=== PATIENT | female | born 1960 | race Caucasian/White ===

== ENCOUNTER 2016-08-01 18:41 | Emergency (ER) | payer OTHER ==
[~2016-08-01] VITALS: Wt 138.3 kg
[~2016-08-01 18:41] MED LIST: ATENOLOL50 MG PO; CLINDAMYCIN150 MG PO; FLEXERIL5 MG PO; HYDROCODONE BIT1 T11 PO; LISINOPRIL HCTZ1 TA1 PO; LOPRESSOR50 MG PO; NAPROSYN500 MG PO; POTASSIUM GLUC550 M1 PO; PRINIVIL20 MG PO; VICODIN 500 MG-1 TAB PO; VOLTAREN50 M1 PO; ZOLOFT100 MG PO
[2016-08-01] MEDS ORDERED: LORAZEPAM1 MG PO (18:43)
[2016-08-01] MEDS ORDERED: TAMIFLU 75MG CA75 MG PO (20:00)
== END 2016-08-01 20:05 | disposition home or self-care (01) ==
LOC: ED 18:41
DX: J09.X2 Influenza due to identified novel influenza A virus with other respiratory manifestations (principal); Z88.2 Allergy status to sulfonamides; Z91.040 Latex allergy status; Z90.49 Acquired absence of other specified parts of digestive tract

== ENCOUNTER 2016-12-31 17:14 | Emergency (ER) | payer OTHER ==
[~2016-12-31] VITALS: Ht 160 cm; Wt 136.1 kg
[~2016-12-31 17:14] MED LIST changes: +LORAZEPAM1 MG PO; +TAMIFLU 75MG CA75 MG PO
[2016-12-31] MEDS ORDERED: CEPHALEXIN500 M1 PO (17:44)
== END 2016-12-31 17:47 | disposition home or self-care (01) ==
LOC: ED 17:14
DX: L03.113 Cellulitis of right upper limb (principal); Z88.2 Allergy status to sulfonamides; Z91.040 Latex allergy status; Z90.49 Acquired absence of other specified parts of digestive tract

== ENCOUNTER 2017-04-26 15:24 | Inpatient (IN) | payer OTHER ==
[~2017-04-26] VITALS: Ht 160 cm; Wt 140.3 kg
[~2017-04-26 15:24] MED LIST changes: +CEPHALEXIN500 M1 PO
[2017-04-26 15:50] VITALS: BP 169/110
[2017-04-26 16:04] VITALS: BP 148/78
[2017-04-26 16:50] LABS: BASO # 0.1 10*3/uL (0.0-0.1); BASO % 0.7 % (0.0-1.0); EOS # 0.2 10*3/uL (0.0-0.4); EOS % 2.3 % (1.0-4.0); HEMATOCRIT 39.6 % (37.0-47.0); HEMOGLOBIN 13.8 g/dl (12.0-16.0); LYMPH # 2.8 10*3/uL (1.3-4.4); LYMPH % 40.1 % (27.0-41.0); MEAN CELL VOLUME 88.2 fl (81.0-99.0); MEAN CORPUSCULAR HGB 30.7 pg (27.0-31.0); MEAN CORPUSCULAR HGB CONC 34.8 g/dl (33.0-37.0); MEAN PLATELET VOLUME 9.6 fl (9.6-12.3); MONO # 0.5 10*3/uL (0.1-1.0); MONO % 6.8 % (3.0-9.0); NEUT # 3.5 10*3/uL (2.3-7.9); NEUT % 49.8 % (47.0-73.0); PLATELET COUNT AUTOMATED 242 10*3/uL (130-400); RED BLOOD COUNT 4.49 10*6/uL (4.10-5.10); RED CELL DISTRI WIDTH 12.5 % (0-14.5); WHITE BLOOD COUNT 7.1 10*3/uL (4.8-10.8)
[2017-04-26 17:07] LABS: ALBUMIN 3.7 gm/dl (3.1-4.5); ALKALINE PHOSPHATASE 67 U/L (45-117); BUN 16 mg/dl (7-24); CHLORIDE 101 mmol/L (98-107); CREATININE 0.79 mg/dL (0.55-1.02); MAGNESIUM 1.8 mg/dL (1.5-2.1); POTASSIUM 3.4 mmol/L (3.5-5.1); SGOT/AST 30 IU/L (3-35); SGPT/ALT 39 U/L (12-78); SODIUM 137 mmol/L (136-145); TOTAL PROTEIN 7.5 gm/dL (6.4-8.2)
[2017-04-26 17:17] LABS: TROPONIN I < 0.015 ng/ml (<0.045)
[2017-04-26 18:20] VITALS: BP 146/72
[2017-04-26] MEDS ORDERED: [UNRECOGNIZED DRUG - CODE] (18:30)
--- NOTE | 2017-04-26 18:30 | NUR ---
A 56, admitted to , under the services of FRANCISCO Bob DO with a diagnosis of chest pain. Chief complaint is shoulder pain. Patient arrived via stretcher from ER. Monitor applied. Initial assessment completed. Vital signs taken and recorded. FRANCISCO BOB DO notified of admission to the unit. Orders received. See assessment for past medical history, medications and allergies. Patient and/or family oriented to unit. [facility]. Clothing/patient valuable form completed. JEAN CARLOS FIGUEROA
--- NOTE | 2017-04-26 19:40 | NUR ---
PT. AWAKE, ALERT AND ORIENTED X 3. PT. DENIES CP, SOB AT THIS TIME. CALL LIGHT WITHIN REACH, BED IN LOWEST POSITION, WHEELS LOCKED. SEE SHIFT ASSESSMENT.
[2017-04-26 20:06] VITALS: BP 151/94
[2017-04-27] VITALS: BP 110/72
--- NOTE | 2017-04-27 00:14 | NUR ---
PT. REQUESTED PAIN MEDICATION FOR LEFT SHOULDER PAIN 12/12. [facility], WILL ASSESS FOR EFFECTIVENESS.
--- NOTE | 2017-04-27 01:00 | NUR ---
PT. RE-ASSESSED FOR PAIN FOLLOWING NORCO ADM. PT. SLEEPING WITH NO SIGNS OF DISTRESS, RESPIRATIONS EASY, NON-LABORED.
[2017-04-27 02:57] LABS: BASO % 0.6 % (0.0-1.0); EOS # 0.2 10*3/uL (0.0-0.4); EOS % 2.9 % (1.0-4.0); HEMATOCRIT 35.8 % (37.0-47.0); HEMOGLOBIN 12.6 g/dl (12.0-16.0); LYMPH % 48.9 % (27.0-41.0); MEAN CELL VOLUME 87.3 fl (81.0-99.0); MEAN CORPUSCULAR HGB 30.7 pg (27.0-31.0); MEAN CORPUSCULAR HGB CONC 35.2 g/dl (33.0-37.0); MEAN PLATELET VOLUME 9.9 fl (9.6-12.3); MONO # 0.5 10*3/uL (0.1-1.0); MONO % 7.4 % (3.0-9.0); NEUT # 2.5 10*3/uL (2.3-7.9); NEUT % 39.9 % (47.0-73.0); PLATELET COUNT AUTOMATED 213 10*3/uL (130-400); RED CELL DISTRI WIDTH 12.4 % (0-14.5); WHITE BLOOD COUNT 6.2 10*3/uL (4.8-10.8)
[2017-04-27 03:13] LABS: ALBUMIN 3.2 gm/dl (3.1-4.5); ALKALINE PHOSPHATASE 57 U/L (45-117); BUN 16 mg/dl (7-24); CHLORIDE 102 mmol/L (98-107); CHOLESTEROL 141 mg/dL (<200); MAGNESIUM 1.8 mg/dL (1.5-2.1); PHOSPHOROUS 4.6 mg/dL (2.5-4.9); SGOT/AST 24 IU/L (3-35); SGPT/ALT 33 U/L (12-78); SODIUM 138 mmol/L (136-145); TOTAL PROTEIN 6.7 gm/dL (6.4-8.2); TRIGLYCERIDES 115 mg/dl (<150); VLDL CHOLESTEROL 23 mg/dL (6-40)
[2017-04-27 03:14] LABS: FREE T4 1.24 ng/dl (0.76-1.46); HDL CHOLESTEROL 37 mg/dl (40-60); LDL CHOLESTEROL 81 mg/dL (9-159)
[2017-04-27 03:58] LABS: ACT PARTIAL THROMBO TIME 26.7 SECONDS (20.8-31.5)
[2017-04-27 06:22] LABS: VITAMIN D, 25-HYDROXY 13.7 ng/mL (30-100)
[2017-04-27 08:00] VITALS: BP 142/76
--- NOTE | 2017-04-27 09:00 | NUR ---
Dietitian Helper in to talk to patient. Patient states lives at home with . There are few steps in the home. Physician: [facility]: [facility]: none Patient's level of ADLs: INDEPENDENT Patient has working utilities: all working DME: none Follow-up physician's appointment after d/c: will be made by hospitalist nurse director upon discharge Does patient want to access PORTAL?: no Discharge plan discussed with patient, patient lives at home with and family, states she is independent in adls and ambulation, patient states she will be going home when able and denies any home needs, patient also asked if she could have a poa and living will paper work to look over, senior planner gave this to patient. ERIC BENÍTEZ
--- NOTE | 2017-04-27 10:00 | NUR ---
ADMINISTERED IV TORADOL PER PT REQUEST FOR LEFT SHOULDER/NECK PAIN RATED 6/10. WILL MONITOR FOR EFFECTIVENESS.
--- NOTE | 2017-04-27 10:50 | NUR ---
SPOKE TO DR JACK REGARDING PTS HOME MEDICATIONS. ORDER TO CONTINUE RECEIVED.
--- NOTE | 2017-04-27 11:00 | NUR ---
PER PT MEDICATION EFFECTIVE IN REDUCING PAIN TO 3/10. RESPS REG/ESY WITH NO DISTRESS NOTED
[2017-04-27 12:00] VITALS: BP 122/64
--- NOTE | 2017-04-27 13:00 | NUR ---
PER PT REQUEST THIS NURSE SPOKE TO DR GUTHRIE AND REQUESTED "MUSCLE RELAXANT" DR GUTHRIE STATES HE WILL PUT IN THE ORDER
--- NOTE | 2017-04-27 13:09 | NUR ---
ADMINISTERED FLU VACCINATION. RIGHT DELTOID.
--- NOTE | 2017-04-27 14:00 | NUR ---
ADMINISTERED PO FLEXERIL PER ORDER FOR LEFT SHOULDER PAIN RATED 3/10. WILL MONITOR FOR EFFECTIVENESS.
--- NOTE | 2017-04-27 14:55 | NUR ---
PER PT MEDICATION EFFECTIVE IN RELIEVING PAIN. DR JACK NOTIFIED.
[2017-04-27] MEDS ORDERED: CYCLOBENZAPRINE5 M3 PO (15:13)
--- NOTE | 2017-04-27 16:00 | NUR ---
Discharge instructions reviewed with patient/family. Patient receptive and verbalizes understanding. Follow-up care arranged. Written instructions given to patient/family. ALFONSO FRIEND
== END 2017-04-27 16:00 | disposition home or self-care (01) | DRG 313 ==
LOC: ED 15:24 → 4E 17:37 → EDHOLD 17:37 → 4E 18:06
PROVIDERS: Hospitalist; Nurse Practitioner Family; ADMIT Internal Medicine
DX: R07.89 Other chest pain (principal); E87.6 Hypokalemia; I10 Essential (primary) hypertension; E53.8 Deficiency of other specified B group vitamins; E55.9 Vitamin D deficiency, unspecified; E66.01 Morbid (severe) obesity due to excess calories; Z68.43 Body mass index [BMI] 50.0-59.9, adult; Z88.2 Allergy status to sulfonamides; Z82.3 Family history of stroke; Z91.040 Latex allergy status; Z83.3 Family history of diabetes mellitus; Z82.49 Family history of ischemic heart disease and other diseases of the circulatory system; Z90.49 Acquired absence of other specified parts of digestive tract

== ENCOUNTER → 2017-12-30 | Outpatient (CLI) | payer OTHER ==
[~2017-12-30] MED LIST changes: +CYCLOBENZAPRINE5 M3 PO; +[UNRECOGNIZED DRUG - CODE]
[2017-12-30 14:48] LABS: BASO # 0.1 10*3/uL (0.0-0.1); BASO % 0.9 % (0.0-1.0); EOS # 0.2 10*3/uL (0.0-0.4); EOS % 3.5 % (1.0-4.0); HEMATOCRIT 41.2 % (37.0-47.0); HEMOGLOBIN 14.2 g/dl (12.0-16.0); LYMPH # 2.5 10*3/uL (1.3-4.4); LYMPH % 39.1 % (27.0-41.0); MEAN CELL VOLUME 88.8 fl (81.0-99.0); MEAN CORPUSCULAR HGB 30.6 pg (27.0-31.0); MEAN CORPUSCULAR HGB CONC 34.5 g/dl (33.0-37.0); MEAN PLATELET VOLUME 9.7 fl (9.6-12.3); MONO # 0.5 10*3/uL (0.1-1.0); MONO % 7.1 % (3.0-9.0); NEUT # 3.1 10*3/uL (2.3-7.9); NEUT % 49.1 % (47.0-73.0); PLATELET COUNT AUTOMATED 258 10*3/uL (130-400); RED BLOOD COUNT 4.64 10*6/uL (4.10-5.10); RED CELL DISTRI WIDTH 12.2 % (0-14.5); WHITE BLOOD COUNT 6.3 10*3/uL (4.8-10.8)
[2017-12-30 15:16] LABS: BUN 15 mg/dl (7-24); CHLORIDE 102 mmol/L (98-107); CHOLESTEROL 181 mg/dL (<200); CREATININE 1.08 mg/dL (0.55-1.02); HDL CHOLESTEROL 46 mg/dl (40-60); LDL CHOLESTEROL 112 mg/dL (9-159); POTASSIUM 3.6 mmol/L (3.5-5.1); SODIUM 139 mmol/L (136-145); TRIGLYCERIDES 114 mg/dl (<150); VLDL CHOLESTEROL 23 mg/dL (6-40)
== END | disposition home or self-care (01) ==
LOC: LAB 14:16
PROVIDERS: Family Medicine
DX: I10 Essential (primary) hypertension (principal); E53.8 Deficiency of other specified B group vitamins; R73.01 Impaired fasting glucose

== ENCOUNTER 2018-09-30 11:56 | Emergency (ER) | payer OTHER ==
[~2018-09-30] VITALS: Ht 160 cm; Wt 136.1 kg
[2018-09-30 12:26] LABS: BILIRUBIN NEGATIVE (NEGATIVE); BLOOD NEGATIVE (NEGATIVE); CLARITY SL CLOUDY (CLEAR); COLOR YELLOW (YELLOW); GLUCOSE NEGATIVE (NEGATIVE); KETONE NEGATIVE (NEGATIVE); LEUKO ESTERASE TRACE (NEGATIVE); NITRITE NEGATIVE (NEGATIVE); SPECIFIC GRAVITY 1.015 (1.005-1.030); UROBILINOGEN 0.2 E.U./dl (0.2-1.0)
[2018-09-30 12:39] LABS: BACTERIA 3+
[2018-09-30] MEDS ORDERED: CYCLOBENZAPRINE5 M3 PO (15:00)
== END 2018-09-30 15:03 | disposition home or self-care (01) ==
LOC: ED 11:56
PROVIDERS: Nurse Practitioner
DX: M54.5 Low back pain (principal); G89.29 Other chronic pain; Z88.2 Allergy status to sulfonamides; Z91.040 Latex allergy status; Z79.899 Other long term (current) drug therapy; Z90.49 Acquired absence of other specified parts of digestive tract; X50.0XXA Overexertion from strenuous movement or load, initial encounter; Y93.89 Activity, other specified; Y92.69 Other specified industrial and construction area as the place of occurrence of the external cause; Y99.0 Civilian activity done for income or pay

== ENCOUNTER → 2019-01-02 | Outpatient (CLI) | payer OTHER ==
[2019-01-02 15:10] LABS: HEMATOCRIT 40.9 % (37.0-47.0); MEAN CELL VOLUME 89.9 fl (81.0-99.0); MEAN CORPUSCULAR HGB 30.8 pg (27.0-31.0); MEAN CORPUSCULAR HGB CONC 34.2 g/dl (33.0-37.0); MEAN PLATELET VOLUME 9.7 fl (9.6-12.3); RED BLOOD COUNT 4.55 10*6/uL (4.10-5.10); RED CELL DISTRI WIDTH 12.2 % (0-14.5); WHITE BLOOD COUNT 5.8 10*3/uL (4.8-10.8)
[2019-01-02 15:40] LABS: ALBUMIN 3.5 gm/dl (3.1-4.5); BUN 12 mg/dl (7-24); CHLORIDE 106 mmol/L (98-107); POTASSIUM 3.3 mmol/L (3.5-5.1); SODIUM 141 mmol/L (136-145)
[2019-01-02 15:53] LABS: ALKALINE PHOSPHATASE 64 U/L (45-117); CHOLESTEROL 157 mg/dL (<200); CPK 62 U/L (26-192); HDL CHOLESTEROL 43 mg/dl (40-60); LDL CHOLESTEROL 90 mg/dL (9-159); SGOT/AST 20 IU/L (3-35); SGPT/ALT 31 U/L (12-78); TOTAL PROTEIN 7.4 gm/dL (6.4-8.2); TRIGLYCERIDES 120 mg/dl (<150); VLDL CHOLESTEROL 24 mg/dL (6-40)
== END | disposition home or self-care (01) ==
LOC: LAB 14:51
PROVIDERS: Family Medicine
DX: E78.00 Pure hypercholesterolemia, unspecified (principal); E55.9 Vitamin D deficiency, unspecified; I10 Essential (primary) hypertension; E66.9 Obesity, unspecified; R53.83 Other fatigue

== ENCOUNTER → 2019-01-04 | Outpatient (CLI) | payer OTHER | END | disposition home or self-care (01) | LOC: MAMMO 13:24 | DX: N60.11 Diffuse cystic mastopathy of right breast (principal); N60.12 Diffuse cystic mastopathy of left breast ==

== ENCOUNTER 2019-06-12 11:29 | Inpatient (IN) | payer OTHER ==
[~2019-06-12] VITALS: Ht 154.9 cm; Wt 111.6 kg
[2019-06-12 11:30] VITALS: BP 124/54
[2019-06-12 12:04] LABS: BASO % 0.3 % (0.0-1.0); EOS % 0.5 % (1.0-4.0); HEMATOCRIT 26.8 % (37.0-47.0); HEMOGLOBIN 8.9 g/dl (12.0-16.0); LYMPH # 2.8 10*3/uL (1.3-4.4); LYMPH % 44.7 % (27.0-41.0); MEAN CELL VOLUME 104.7 fl (81.0-99.0); MEAN CORPUSCULAR HGB 34.8 pg (27.0-31.0); MEAN CORPUSCULAR HGB CONC 33.2 g/dl (33.0-37.0); MEAN PLATELET VOLUME 9.7 fl (9.6-12.3); MONO # 0.7 10*3/uL (0.1-1.0); MONO % 11.3 % (3.0-9.0); NEUT # 2.7 10*3/uL (2.3-7.9); NEUT % 42.7 % (47.0-73.0); NUCLEATED RED BLOOD CELL 0.3 % (0.0-0.0); PLATELET COUNT AUTOMATED 216 10*3/uL (130-400); RED BLOOD COUNT 2.56 10*6/uL (4.10-5.10); RED CELL DISTRI WIDTH 21.5 % (0-14.5); WHITE BLOOD COUNT 6.2 10*3/uL (4.8-10.8)
[2019-06-12 12:13] LABS: ACT PARTIAL THROMBO TIME 29.3 SECONDS (20.0-32.1); INTERNATIONAL NORM RATIO 1.1 (2.0-3.5)
[2019-06-12 12:19] LABS: ALBUMIN 2.6 gm/dl (3.1-4.5); ALKALINE PHOSPHATASE 79 U/L (45-117); BUN 8 mg/dl (7-24); CHLORIDE 96 mmol/L (98-107); CREATININE 0.67 mg/dL (0.55-1.02); LIPASE 188 U/L (73-393); SGOT/AST 29 IU/L (3-35); SGPT/ALT 30 U/L (12-78); SODIUM 134 mmol/L (136-145); TOTAL PROTEIN 5.8 gm/dL (6.4-8.2); TROPONIN I < 0.015 ng/ml (<0.045)
[2019-06-12 12:20] LABS: POTASSIUM 2.1 mmol/L (3.5-5.1)
[2019-06-12 13:13] VITALS: BP 120/69
[2019-06-12 14:17] VITALS: BP 115/63
[2019-06-12] MEDS ORDERED: TYLENOL325 M1 PO (14:40)
[2019-06-12] MEDS ORDERED: NORVASC5 MG PO (14:49)
[2019-06-12] MEDS ORDERED: VITAMIN D-32000 UNI1 PO (14:50)
[2019-06-12] MEDS ORDERED: GOOD SENSE ACID20 MG PO (14:51)
[2019-06-12] MEDS ORDERED: ESOMEPRAZOLE MA40 M1 PO (14:51)
[2019-06-12] MEDS ORDERED: PHARMASSURE FO0.4 MG PO (14:52)
[2019-06-12] MEDS ORDERED: APRESOLINE25 MG PO (14:53)
[2019-06-12 15:00] VITALS: BP 126/83
[2019-06-12] MEDS ORDERED: TOPROL XL25 MG PO (15:03)
[2019-06-12] MEDS ORDERED: ZOFRAN4 MG PO (15:03)
[2019-06-12] MEDS ORDERED: PROCHLORPERAZIN10 MG PO (15:04)
[2019-06-12] MEDS ORDERED: Carafate1 GM/10 ML PO (15:05)
[2019-06-12 16:00] VITALS: BP 129/85
[2019-06-12 19:52] LABS: BUN 7 mg/dl (7-24); CHLORIDE 97 mmol/L (98-107); CREATININE 0.81 mg/dL (0.55-1.02); SODIUM 135 mmol/L (136-145)
[2019-06-12 19:55] LABS: POTASSIUM 2.2 mmol/L (3.5-5.1)
[2019-06-12 20:00] VITALS: BP 127/82
[2019-06-13] VITALS: BP 144/80
[2019-06-13 06:55] LABS: BASO % 0.3 % (0.0-1.0); EOS % 0.3 % (1.0-4.0); HEMATOCRIT 27.3 % (37.0-47.0); HEMOGLOBIN 9.1 g/dl (12.0-16.0); LYMPH # 2.8 10*3/uL (1.3-4.4); LYMPH % 48.6 % (27.0-41.0); MEAN CELL VOLUME 103.8 fl (81.0-99.0); MEAN CORPUSCULAR HGB 34.6 pg (27.0-31.0); MEAN CORPUSCULAR HGB CONC 33.3 g/dl (33.0-37.0); MEAN PLATELET VOLUME 9.5 fl (9.6-12.3); MONO # 0.6 10*3/uL (0.1-1.0); NEUT # 2.3 10*3/uL (2.3-7.9); NEUT % 39.3 % (47.0-73.0); NUCLEATED RED BLOOD CELL 0.3 % (0.0-0.0); PLATELET COUNT AUTOMATED 218 10*3/uL (130-400); RED BLOOD COUNT 2.63 10*6/uL (4.10-5.10); RED CELL DISTRI WIDTH 21.5 % (0-14.5); WHITE BLOOD COUNT 5.7 10*3/uL (4.8-10.8)
[2019-06-13 07:09] LABS: ALBUMIN 2.9 gm/dl (3.1-4.5); ALKALINE PHOSPHATASE 84 U/L (45-117); BUN 6 mg/dl (7-24); CHLORIDE 97 mmol/L (98-107); CREATININE 0.59 mg/dL (0.55-1.02); SGOT/AST 32 IU/L (3-35); SGPT/ALT 32 U/L (12-78); SODIUM 135 mmol/L (136-145); TOTAL PROTEIN 6.1 gm/dL (6.4-8.2)
[2019-06-13 07:13] LABS: POTASSIUM 2.2 mmol/L (3.5-5.1)
[2019-06-13 08:34] LABS: VITAMIN D, 25-HYDROXY 27.4 ng/mL (30-100)
[2019-06-13 12:00] VITALS: BP 149/85
[2019-06-13 16:00] VITALS: BP 148/82
[2019-06-13 20:00] VITALS: BP 140/78
[2019-06-14] VITALS: BP 136/84
[2019-06-14 06:49] LABS: BUN 7 mg/dl (7-24); CHLORIDE 102 mmol/L (98-107); CREATININE 0.66 mg/dL (0.55-1.02); POTASSIUM 2.8 mmol/L (3.5-5.1); SODIUM 140 mmol/L (136-145)
[2019-06-14 08:00] VITALS: BP 158/88
[2019-06-14 12:00] VITALS: BP 153/92
[2019-06-14 16:00] VITALS: BP 155/92
[2019-06-14 20:00] VITALS: BP 148/92
[2019-06-15] VITALS: BP 152/87
[2019-06-15 07:52] LABS: BASO % 0.5 % (0.0-1.0); EOS % 0.5 % (1.0-4.0); HEMATOCRIT 27.3 % (37.0-47.0); HEMOGLOBIN 9.1 g/dl (12.0-16.0); LYMPH # 3.1 10*3/uL (1.3-4.4); LYMPH % 53.7 % (27.0-41.0); MEAN CELL VOLUME 107.5 fl (81.0-99.0); MEAN CORPUSCULAR HGB 35.8 pg (27.0-31.0); MEAN CORPUSCULAR HGB CONC 33.3 g/dl (33.0-37.0); MEAN PLATELET VOLUME 9.2 fl (9.6-12.3); MONO # 0.6 10*3/uL (0.1-1.0); MONO % 10.5 % (3.0-9.0); NEUT % 34.5 % (47.0-73.0); PLATELET COUNT AUTOMATED 196 10*3/uL (130-400); RED BLOOD COUNT 2.54 10*6/uL (4.10-5.10); RED CELL DISTRI WIDTH 22.2 % (0-14.5); WHITE BLOOD COUNT 5.8 10*3/uL (4.8-10.8)
[2019-06-15 08:00] VITALS: BP 150/94
[2019-06-15 08:03] LABS: BUN 7 mg/dl (7-24); CHLORIDE 103 mmol/L (98-107); CREATININE 0.64 mg/dL (0.55-1.02); POTASSIUM 3.4 mmol/L (3.5-5.1); SODIUM 139 mmol/L (136-145)
[2019-06-15] MEDS ORDERED: KLOR-CON/EF25 MEQ PO (08:40)
[2019-06-15] MEDS ORDERED: ALDACTONE25 MG PO (08:40)
== END 2019-06-15 10:43 | disposition other institution (70) | DRG 640 ==
LOC: ED 11:29 → 4E 13:13 → EDHOLD 13:13 → 4E 14:34
PROVIDERS: Emergency Medicine; Family Medicine; Internal Medicine; ADMIT Internal Medicine
DX: E87.6 Hypokalemia (principal); E43 Unspecified severe protein-calorie malnutrition; Z68.42 Body mass index [BMI] 45.0-49.9, adult; E87.1 Hypo-osmolality and hyponatremia; C50.912 Malignant neoplasm of unspecified site of left female breast; D53.9 Nutritional anemia, unspecified; E87.2 Acidosis; R73.9 Hyperglycemia, unspecified; R53.1 Weakness; E83.51 Hypocalcemia; E83.42 Hypomagnesemia; I10 Essential (primary) hypertension; T45.1X5A Adverse effect of antineoplastic and immunosuppressive drugs, initial encounter; Y92.89 Other specified places as the place of occurrence of the external cause; Z92.21 Personal history of antineoplastic chemotherapy; Z90.49 Acquired absence of other specified parts of digestive tract; Z82.49 Family history of ischemic heart disease and other diseases of the circulatory system; Z88.2 Allergy status to sulfonamides; Z91.040 Latex allergy status; Z79.899 Other long term (current) drug therapy